=== PATIENT | female | born 1955 | race Caucasian/White ===

== ENCOUNTER → 2017-08-15 | Outpatient (CLI) | payer BC ==
[~2017-08-15] MED LIST: ADVAIR 250/28 DISKUS IH; FERROUS SU325 MG/TAB PO; FOLIC ACID; HCTZ 25MG25 MG PO; LEXAPRO20 MG PO; LOTENSIN10 MG PO; VITAMIN C250250 MG PO
== END ==
LOC: MC.RAD 15:25
DX: Z12.31 Encounter for screening mammogram for malignant neoplasm of breast (principal)

== ENCOUNTER → 2020-05-05 | Outpatient (CLI) | payer MEDICARE, OTHER | LOC: MC.RAD 08:22 | DX: Z12.31 Encounter for screening mammogram for malignant neoplasm of breast (principal) ==

== ENCOUNTER 2021-08-01 19:40 | Inpatient (IN) | payer BC, MEDICARE, OTHER ==
[~2021-08-01] VITALS: Ht 170.2 cm; Wt 118.2 kg
[2021-08-01 20:12] LABS: HEMATOCRIT 44.4 % (37.0-47.0); HEMOGLOBIN 14.8 g/dl (12.5-16.0); MEAN CELL VOLUME 88 fl (80.0-100.0); MEAN CORPUSCULAR HEMOGLOBIN 29 pg (27.0-31.0); MEAN CORPUSCULAR HGB CONC 33 g/dl (33.0-37.0); MEAN PLATELET VOLUME 9.7 fl (7.4-10.4); PLATELET COUNT 315 K/mm3 (130-400); RED BLOOD COUNT 5.04 M/mm3 (4.10-5.30)
[2021-08-01 20:34] LABS: ALBUMIN 3.9 gm/dL (3.4-4.8); BILIRUBIN,TOTAL 0.4 mg/dL (0.2-1.2); CALCIUM 9.8 mg/dL (8.4-10.2); CREATININE, serum 1.2 mg/dL (0.57-1.11); POTASSIUM 3.5 mmol/L (3.5-4.5); TOTAL PROTEIN 7.6 gm/dL (6.2-8.1)
[2021-08-01 20:38] LABS: BAND 3 % (0-10); LYMPHOCYTE 16 % (20.0-51.0); METAMYELOCYTE 1 % (0-0); NEUTROPHILS 77 % (42.0-75.2)
[2021-08-01 20:39] LABS: PLATELET ESTIMATE NORMAL (NORMAL)
[2021-08-01 20:40] LABS: TROPONIN-I 0.032 ng/mL (0.00-0.033)
[2021-08-01 22:14] LABS: ARTERIAL BLD GAS O2 SATURATION 95.6 % (92-100); ARTERIAL BLD GAS TCO2 CT 24.9; ARTERIAL BLOOD GAS BASE EXCESS -0.2 (-2-2); ARTERIAL BLOOD GAS HCO3 23.8 meq/L (22-26); ARTERIAL BLOOD GAS PCO2 36.8 mmHg (35-45); ARTERIAL BLOOD GAS PO2 78.2 mmHg (80-100); ARTERIAL BLOOD GAS pH 7.43 (7.35-7.45)
[2021-08-01 23:21] VITALS: BP 128/81; PULSE 79; TEMP 98
[2021-08-01] MEDS ORDERED: SYNTHROID0.1 MG/TAB PO (23:50)
[2021-08-01] MEDS ORDERED: DIOVAN 160MG160 MG PO (23:51)
[2021-08-01] MEDS ORDERED: PROVENTIL0.09 MG/A1 IH (23:51)
[2021-08-01] MEDS ORDERED: FLONASE NASAL S16 GM NS (23:52)
[2021-08-01] MEDS ORDERED: GLUCOPHAGE500 MG/TAB PO (23:53)
[2021-08-02] VITALS (7 sets, daily range): BP systolic 123–144; BP diastolic 70–87; PULSE 64–79; TEMP 97.3–98
[2021-08-02 07:16] LABS: BASO % 0.2 % (0.0-2.0); EOS % 0.5 % (0-4.0); GRAN # 7.5 (1.4-6.5); GRAN % 84.7 % (42.2-75.2); HEMATOCRIT 42.3 % (37.0-47.0); HEMOGLOBIN 14.3 g/dl (12.5-16.0); LYMPH # 1.1 (1.2-3.4); LYMPH % 12.4 % (20.0-51.0); MEAN CELL VOLUME 88 fl (80.0-100.0); MEAN CORPUSCULAR HEMOGLOBIN 30 pg (27.0-31.0); MEAN CORPUSCULAR HGB CONC 34 g/dl (33.0-37.0); MEAN PLATELET VOLUME 9.8 fl (7.4-10.4); MONO # 0.1 (0.1-0.6); MONO % 1.1 % (1.7-9.3); PLATELET COUNT 301 K/mm3 (130-400); RED BLOOD COUNT 4.82 M/mm3 (4.10-5.30); REDCELL DISTRIBUTION WIDTH-CV 12.9 % (11.5-14.5)
[2021-08-02 07:38] LABS: CALCIUM 9.5 mg/dL (8.4-10.2); POTASSIUM 3.9 mmol/L (3.5-4.5)
[2021-08-02 09:11] LABS: CREATININE, serum 0.91 mg/dL (0.57-1.11)
--- NOTE | 2021-08-02 11:38 | NUR ---
PT UP INDEPENDENTLY IN ROOM, EATING AND DRINKING NO NAUSEA VOMITING. ACUTE ASTHMA APPEARS RESOLVED. PT DENIES SOB, OR TIGHTNESS. VSS, ASSESSMENTS COMPLETE, DIFUSE RASH OVER ENTIRE BODY POSSIBLY RELATED TO CAT ALLERGY BY PT REPORT. PLAN ON OVERNIGHT STAY WITH IV STEROIDS AND THEN DISCHARGE TUESDAY.
--- NOTE | 2021-08-02 13:56 | NUR ---
Sw met with the pt who stated her preference to return home once medically stable. The pt lives at home with her , [employer] ph# [phone]. The pt is independent on all ADLS and does not use any DME. She will in the future use a CPAP. Her PCP is [place] [facility] and gets her medicatios from [facility]. The pt has no trouble obtaining the cost. No other needs stated at this time. Sw to await further recommendations and follow up as needed. D/c: Home with
[2021-08-03 03:39] VITALS: BP 119/70; PULSE 66; TEMP 97.4
--- NOTE | 2021-08-03 07:00 | NUR ---
PT resting with eyes closed, even non labored breathing
[2021-08-03 08:00] VITALS: BP 138/82; PULSE 69; TEMP 97.6
[2021-08-03] MEDS ORDERED: MEDROL 4MG DOSPA4 MG PO (08:46)
--- NOTE | 2021-08-03 10:44 | NUR ---
Reviewed discharge instructions with pt to include follow up appointments and prescriptions . Pt verbalized understanding. INT removed and pt escorted out.
== END 2021-08-03 10:45 | disposition home or self-care (01) | DRG 202 ==
LOC: COL.ER 19:40 → SURG 21:53
PROVIDERS: Emergency Medicine; Physician Assistant; ADMIT Internal Medicine
DX: J45.901 Unspecified asthma with (acute) exacerbation (principal); J96.01 Acute respiratory failure with hypoxia; Z98.51 Tubal ligation status; Z20.822 Contact with and (suspected) exposure to COVID-19; D72.829 Elevated white blood cell count, unspecified; J33.9 Nasal polyp, unspecified; I12.9 Hypertensive chronic kidney disease with stage 1 through stage 4 chronic kidney disease, or unspecified chronic kidney disease; E11.22 Type 2 diabetes mellitus with diabetic chronic kidney disease; F32.9 Major depressive disorder, single episode, unspecified
CPT/HCPCS: 99223-AI; 99232-AI; 99239; J1815; J2930

== ENCOUNTER → 2022-04-08 | Outpatient (CLI) | payer MEDICARE, BC, OTHER ==
[~2022-04-08] MED LIST changes: +DIOVAN 160MG160 MG PO; +FLONASE NASAL S16 GM NS; +GLUCOPHAGE500 MG/TAB PO; +MEDROL 4MG DOSPA4 MG PO; +PROVENTIL0.09 MG/A1 IH; +SYNTHROID0.1 MG/TAB PO
== END ==
LOC: MC.RAD 03-16 14:15
DX: Z12.31 Encounter for screening mammogram for malignant neoplasm of breast (principal)

== ENCOUNTER 2022-09-06 18:41 | Emergency (ER) | payer MEDICARE, BC, OTHER ==
[~2022-09-06] VITALS: Ht 170.2 cm; Wt 111.4 kg
[2022-09-06 18:59] VITALS: TEMP 98.5
[2022-09-06 19:34] LABS: BASO # 0.1 K/mm3 (0.0-0.2); BASO % 0.7 % (0.0-2.0); EOS # 0.8 K/mm3 (0.0-0.7); EOS % 7.7 % (0.0-4.0); GRAN # 5.9 K/mm3 (1.4-6.5); HEMATOCRIT 41.8 % (37.0-47.0); HEMOGLOBIN 13.9 g/dl (12.5-16.0); LYMPH # 3.1 K/mm3 (1.2-3.4); LYMPH % 29.9 % (20.0-51.0); MEAN CELL VOLUME 86 fl (80.0-100.0); MEAN CORPUSCULAR HEMOGLOBIN 29 pg (27-31); MEAN CORPUSCULAR HGB CONC 33 g/dl (33.0-37.0); MEAN PLATELET VOLUME 9.2 fl (7.4-10.4); MONO # 0.5 K/mm3 (0.1-0.6); PLATELET COUNT 270 K/mm3 (130-400); RED BLOOD COUNT 4.84 M/mm3 (4.10-5.30)
[2022-09-06 19:49] LABS: ALBUMIN 3.6 gm/dL (3.4-4.8); BILIRUBIN,TOTAL 0.4 mg/dL (0.2-1.2); C-REACTIVE PROTEIN 0.62 mg/dL (0.00-0.50); CALCIUM 9.1 mg/dL (8.4-10.2); CREATININE, serum 1.15 mg/dL (0.57-1.11); POTASSIUM 3.6 mmol/L (3.5-4.5); TOTAL PROTEIN 7.2 gm/dL (6.2-8.1)
[2022-09-06 19:55] LABS: TROPONIN-I 0.016 ng/mL (0.00-0.033)
[2022-09-06] MEDS ORDERED: PREDNISONE50 MG PO (22:08)
[2022-09-06 22:24] VITALS: BP 145/79; PULSE 80
== END 2022-09-06 22:24 | disposition home or self-care (01) ==
LOC: COL.ER 18:41
PROVIDERS: Nurse Practitioner
DX: J45.901 Unspecified asthma with (acute) exacerbation (principal); R79.1 Abnormal coagulation profile; Z20.822 Contact with and (suspected) exposure to COVID-19
CPT/HCPCS: J1200; J2930; J7050; Q9967